=== PATIENT | male | born 1965 | race Caucasian/White ===

== ENCOUNTER 2019-11-08 15:33 | Outpatient (CLI) | payer OTHER ==
--- NOTE | 2019-11-08 16:30 | MRI ---
MRI Lumbar Spine Noncontrast: HISTORY: Lumbar radiculopathy COMPARISON: None FINDINGS: There is a 1.2 cm increased T2 and corresponding decreased T1-weighted signal intensity structure see n in a left para-aortic location adjacent to the left ureter. This likely represents a nonspecific mildly prominent lymph node. Remainder the retroperitoneal structures demonstrate a normal nonenhance d CT appearance. Conus medullaris is normal in morphology and terminates at the L1 level. There is generalized heterogeneity of the bone marrow. A 1.5 cm rounded focus of increased T1 and T2- weighted signal intensity is seen in the L3 vertebral body demonstrating characteristics most compatible with a hemangioma. Linear increased T2-weighted signal intensity is seen along the L3 and L4 vertebral body endplates with severe loss of intervertebral disc height. Findings are most likely attributable to prominent endplate degenerative changes. L1-2: Mild disc osteophyte complex is present which results in mild effacement of the ventral aspect of the thecal sac. Neural foramina are patent. L2-3: Severe loss of intervertebral disc height is present with mild endplate degenerative changes. A broad-based disc osteophyte complex is present. This results in generalized mild narrowing of the central spinal canal with mild bilateral neural foraminal narrowing. L3-4: As noted above, there is severe loss of intervertebral disc height with endplate degenerative c hanges. A disc osteophyte complex is present with facet hypertrophic changes identified. Fluid signal intensity is seen in the facet joints. There is mild prominence of epidural fat posteriorly. C onstellation of these findings results in moderate central canal narrowing with narrowing, narrowing of the lateral recesses, and moderate to severe right and mild to moderate left-sided neura l foraminal narrowing. L4-5: Loss of intervertebral disc height is present. Broad-based disc osteophyte complex is noted. Mi ld facet degenerative changes are present with mild fluid signal intensity seen in the facet joints. Findings result in mild generalized narrowing of the central spinal canal with mild to modera te bilateral neural foraminal narrowing greater on the left. L5-S1: Loss of intervertebral disc height is present. A broad-based disc osteophyte complex is identi fied with mild facet hypertrophic changes. Findings result in moderate to severe left and moderate right-sided neural foraminal narrowing. There is slight effacement of ventral aspect of the thecal sa c. A subcentimeter fluid signal intensity structure is seen posterior to the left facet joint likely related to tiny synovial cyst. IMPRESSION: Multilevel disc degenerative changes with varying degrees of neural foraminal narrowing with degrees of neural foraminal narrowing greatest involving the lower lumbar spine as described above.
== END 2019-11-08 15:34 | disposition home or self-care (01) ==
LOC: TBSIIMAG 15:33
PROVIDERS: ATTEND Neurological Surgery
DX: M51.16 Intervertebral disc disorders with radiculopathy, lumbar region (principal); M48.061 Spinal stenosis, lumbar region without neurogenic claudication
CPT/HCPCS: 72148

== ENCOUNTER 2019-12-15 06:16 | Outpatient (CLI) | payer OTHER ==
[2019-12-15 12:03] LABS: Hemoglobin 14.4 g/dL (14.0-18.0); Mean Corpuscular HGB CONC 32.4 g/dL (32.0-36.0); Mean Corpuscular Volume 89.5 fL (78.0-98.0); Mean Platelet Volume 7.9 fL (7.4-10.4); Platelet Count 273 thou/uL (130-400); RBC Distribution Width 11.8 % (11.5-14.5); Red Blood Cell (RBC) Count 4.98 mill/uL (4.70-6.10); White Blood Cell (WBC) Count 5.1 thou/uL (4.8-10.8)
[2019-12-15 12:24] LABS: Anion Gap 14 mmol/L (10-20); BUN (Urea Nitrogen) 17 mg/dL (8.4-25.7); Calc. Creatinine Clearance 0 mL/min (70-130); Calcium 9.8 mg/dL (7.8-10.44); Carbon Dioxide 26 mmol/L (22-29); Chloride 100 mmol/L (98-107); Estimated GFR-MDRD 74; Glucose 104 mg/dL (70-105); Potassium 4.2 mmol/L (3.5-5.1); Sodium 136 mmol/L (136-145)
[2019-12-15 18:31] LABS: SARS-CoV-2 MS2 Positive; SARS-CoV-2 N Gene Negative; SARS-CoV-2 S Gene Negative; SARS-CoV-2 orf1ab Negative
== END 2019-12-15 06:17 | disposition home or self-care (01) ==
LOC: LABBT 06:16
PROVIDERS: ATTEND Neurological Surgery
DX: Z01.818 Encounter for other preprocedural examination (principal); Z11.59 Encounter for screening for other viral diseases; M54.16 Radiculopathy, lumbar region
CPT/HCPCS: 80048; 85027; 87635; 93005; 93010; U0003

== ENCOUNTER 2019-12-20 08:28 | Day surgery (SDC) | payer OTHER ==
[2019-12-15 10:01] VITALS: BMI 31.1
[2019-12-20] MEDS ORDERED: Clindamycin/D5W 900 mg/50 ml Premix Bag ONE (08:49)
[2019-12-20] MEDS ORDERED: Levofloxacin 500 mg/D5W 100 ml Premix Bag ONE (09:42)
[2019-12-20] MEDS ORDERED: Fentanyl 100 MCG/2 ML VIAL ONE ×4 (11:10→13:10)
[2019-12-20] MEDS ORDERED: Promethazine HCl 25 MG/ML VIAL SLOW IVP PRN (11:53)
[2019-12-20] MEDS ORDERED: HYDROmorphone 2 MG/ML VIAL SLOW IVP PRN (11:53)
[2019-12-20] MEDS ORDERED: Meperidine HCl/PF 25 MG/ML VIAL SLOW IVP PRN (11:53)
--- NOTE | 2019-12-20 12:43 | OP ---
DATE OF PROCEDURE: 12/20/2019 REIMBURSEMENT SPEC: Leida Horowitz PA-C PROCEDURE PERFORMED: Left L4-L5 laminectomy, left L5 foraminotomy. DESCRIPTION OF PROCEDURE: The patient was brought to the operating room and intubated. He was rolled in a prone position on gel-filled chest rolls. An incision was made exposing L4 through the sacrum and the level was confirmed by x-ray. We performed complete left L5 laminectomy, facetectomy, and foraminotomy, and a left L4-L5 laminectomy, completely decompressing the left L5 nerve root. This was followed up through the left L5 neural foramen and completely decompressed. The wound was then extensively irrigated and MAC hemostasis was secured. Vancomycin powder was applied and the wound was closed in anatomic layers. Job ID: [id number]
[2019-12-20] MEDS ORDERED: Tamsulosin HCl 0.4 MG CAP ONE (13:10)
[2019-12-20] MEDS ORDERED: PROPOFOL 200 MG/20 ML VIAL ONE (13:23)
[2019-12-20] MEDS ORDERED: PHENYLEPHRINE-NS 100 MCG/ML 10 ML SYRINGE ONE (13:23)
[2019-12-20] MEDS ORDERED: EPHEDRINE 25 MG/5 ML SYRINGE ONE (13:23)
[2019-12-20] MEDS ORDERED: Rocuronium Bromide 10 MG/ML (10ML VIAL) ONE (13:23)
[2019-12-20] MEDS ORDERED: Glycopyrrolate 0.2 MG/ML 5 ML SYRINGE ONE (13:23)
[2019-12-20] MEDS ORDERED: Dexamethasone 20 MG/5 ML VIAL ONE (13:23)
[2019-12-20] MEDS ORDERED: Ondansetron PF 4 MG/2 ML Vial ONE (13:23)
[2019-12-20] MEDS ORDERED: Lidocaine 1% PF 5 ML VIAL ONE (13:23)
[2019-12-20] MEDS ORDERED: Ketorolac Tromethamine 30 MG/ML VIAL ONE (13:23)
[2019-12-20] MEDS ORDERED: HYDROcodone/Acetaminophen 5/325 mg Tablet ONE (14:04)
== END 2019-12-20 14:47 | disposition home or self-care (01) ==
LOC: SDC 08:28
PROVIDERS: ATTEND Neurological Surgery
PROC: 01NB0ZZ Release Lumbar Nerve, Open Approach (ICD-10-PCS; principal; 2019-12-20)
DX: M47.26 Other spondylosis with radiculopathy, lumbar region (principal); M48.061 Spinal stenosis, lumbar region without neurogenic claudication; I10 Essential (primary) hypertension; E78.5 Hyperlipidemia, unspecified; Z79.899 Other long term (current) drug therapy; Z88.0 Allergy status to penicillin
CPT/HCPCS: 76000; J1100; J1885; J1956; J2001; J2405; J2704; J3010; J3370; J3490